=== PATIENT | female | born 1975 | race Caucasian/White ===

== ENCOUNTER 2020-10-30 16:13 | Emergency (ER) | payer MEDICAID ==
[~2020-10-30] VITALS: Ht 165.1 cm; Wt 97.0 kg
[~2020-10-30 16:13] MED LIST: CYCL-1 PO; DIAZ5TAB4 PO; OXYC-145 PO
[2020-10-30 16:45] LABS: BASOPHILS % (AUTO) 0.4 % (0-1); EOSINOPHILS # (AUTO) 0.1 X10'3 (0-0.9); EOSINOPHILS % (AUTO) 1.3 % (0-6); HEMATOCRIT 41.8 % (35.0-45.0); HEMOGLOBIN 13.8 g/dl (12.0-16.0); LYMPHOCYTES # (AUTO) 2.3 X10'3 (1.1-4.8); MEAN CORPUSCULAR HEMOGLOBIN 29.4 PG (27.0-31.0); MEAN CORPUSCULAR HGB CONC 33.1 g/dL (33.0-36.5); MEAN CORPUSCULAR VOLUME 88.7 FL (78-98); MEAN PLATELET VOLUME 9.1 FL (7.4-10.4); MONOCYTES # (AUTO) 0.4 X10'3 (0-0.9); MONOCYTES % (AUTO) 5.7 % (2-12); NEUTROPHILS # (AUTO) 4.9 X10'3 (1.8-7.7); NEUTROPHILS % (AUTO) 62.6 % (42-75); PLATELET COUNT 195 X10'3 (140-440); RED BLOOD COUNT 4.71 X10'6 (4.20-5.60); RED CELL DISTRIBUTION WIDTH 14.4 % (11.5-14.5); WHITE BLOOD COUNT 7.8 X10'3 (4.5-11.0)
[2020-10-30 16:57] LABS: ALANINE AMINOTRANSFERASE 23 U/L (12-78); ALBUMIN 3.7 G/DL (3.4-5.0); ALBUMIN/GLOBULIN RATIO 0.9 (1.1-1.5); ALKALINE PHOSPHATASE 84 IU/L (46-116); ANION GAP 6 (8-16); ASPARTATE AMINO TRANSFERASE 13 U/L (10-37); BILIRUBIN,TOTAL 0.3 MG/DL (0.1-1.0); BLOOD UREA NITROGEN 18 MG/DL (7-18); BUN/CREATININE RATIO 19.4 (6.6-38.0); CALCIUM 9.5 MG/DL (8.5-10.1); CHLORIDE 105 MMOL/L (99-107); CREATININE 0.93 MG/DL (0.40-0.90); GLUCOSE 93 MG/DL (70-104); POTASSIUM 4.5 MMOL/L (3.5-5.1); SODIUM 141 MMOL/L (135-145); TOTAL CARBON DIOXIDE 30.3 MMOL/L (24-32); TOTAL PROTEIN 7.8 G/DL (6.4-8.2); eGFR 65 ML/MIN
--- NOTE | 2020-10-30 19:32 | NUR ---
registration called an said pt back in lobby
[2020-10-30] MEDS ORDERED: morphine 4 MG/ML inj SYRINge IV ONE ×2 (20:40→22:00)
[2020-10-30] MEDS ORDERED: ondansetron/PF 4mg/2ml inj IV ONE ×2 (20:40→22:00)
[2020-10-30] MEDS ORDERED: pantoprazole 40 MG vial IV ONE (20:40)
[2020-10-30] MEDS ORDERED: normal saline 1000ML IV soln IVB ONE ×2 (20:40→22:15)
[2020-10-30] MEDS ORDERED: LIDOcaine Viscous 15ml cup MM ONE (20:40)
[2020-10-30] MEDS ORDERED: mag hydrox/Alum hydrox/simeth 30ml oral suspension PO ONE (20:40)
[2020-10-30 21:02] LABS: CLARITY,URINE SLIGHTLY CLOUDY (Clear); COLOR,URINE YELLOW (Yellow); GLUCOSE, URINE NEGATIVE (Neg); KETONES,URINE NEGATIVE (Neg); LEUKOCYTE ESTERASE ,URINE TRACE (Neg); NITRITES, URINE NEGATIVE (Neg); OCCULT BLOOD,URINE TRACE-INTACT (Neg); PH,URINE 6.5 (4.8-8.0); PROTEIN,URINE NEGATIVE (Neg); UROBILINOGEN,URINE 0.2 E.U/dL (0.2-1.0)
[2020-10-30 21:28] LABS: UA COLLECTION TYPE CLN CATCH MIDSTREAM
[2020-10-30 21:29] LABS: BACTERIA,URINE 1+ /HPF (Neg); MUCUS STRANDS MANY /LPF (Neg); RBC,URINE 0-2 /HPF (0-2); SQUAMOUS EPITHELIAL CELL,UR MANY /LPF (FEW)
[2020-10-30 21:42] LABS: URINE HCG NEGATIVE (NEG)
[2020-10-30] MEDS ORDERED: dextrose 5% water 500ml 500 ML IV ONE (22:00)
[2020-10-30 23:04] VITALS: BP 110/89
== END 2020-10-30 23:00 | disposition home or self-care (01) ==
LOC: ER 16:14
DX: C16.9 Malignant neoplasm of stomach, unspecified (principal); R11.2 Nausea with vomiting, unspecified; R19.7 Diarrhea, unspecified; R10.13 Epigastric pain; E78.00 Pure hypercholesterolemia, unspecified; J45.909 Unspecified asthma, uncomplicated; K21.9 Gastro-esophageal reflux disease without esophagitis; F41.9 Anxiety disorder, unspecified; F31.9 Bipolar disorder, unspecified; F12.90 Cannabis use, unspecified, uncomplicated; Z86.69 Personal history of other diseases of the nervous system and sense organs; Z85.9 Personal history of malignant neoplasm, unspecified; Z90.89 Acquired absence of other organs; Z90.710 Acquired absence of both cervix and uterus; Z88.8 Allergy status to other drugs, medicaments and biological substances; Z91.040 Latex allergy status; Z91.013 Allergy to seafood; Z79.899 Other long term (current) drug therapy
CPT/HCPCS: 36415; 80053; 81001; 81025; 85025; 96361; 96374; 96375; 96376; 99284; C9113; J2270; J2405; J7030

== ENCOUNTER 2020-11-06 13:30 | Inpatient (IN) | payer MEDICAID ==
[~2020-11-06] VITALS: Ht 165.1 cm; Wt 95.5 kg
[2020-11-06 14:45] LABS: URINE HCG NEGATIVE (NEG)
[2020-11-06 14:47] LABS: CLARITY,URINE CLEAR (Clear); COLOR,URINE YELLOW (Yellow); GLUCOSE, URINE NEGATIVE (Neg); KETONES,URINE NEGATIVE (Neg); LEUKOCYTE ESTERASE ,URINE NEGATIVE (Neg); NITRITES, URINE NEGATIVE (Neg); OCCULT BLOOD,URINE TRACE-INTACT (Neg); PROTEIN,URINE NEGATIVE (Neg); UROBILINOGEN,URINE 0.2 E.U/dL (0.2-1.0)
[2020-11-06 14:51] LABS: BASOPHILS % (AUTO) 0.7 % (0-1); EOSINOPHILS # (AUTO) 0.1 X10'3 (0-0.9); EOSINOPHILS % (AUTO) 1.6 % (0-6); HEMATOCRIT 44.5 % (35.0-45.0); HEMOGLOBIN 14.7 g/dl (12.0-16.0); LYMPHOCYTES # (AUTO) 2.5 X10'3 (1.1-4.8); LYMPHOCYTES % (AUTO) 40.8 % (21-51); MEAN CORPUSCULAR HEMOGLOBIN 29.4 PG (27.0-31.0); MEAN CORPUSCULAR HGB CONC 32.9 g/dL (33.0-36.5); MEAN CORPUSCULAR VOLUME 89.2 FL (78-98); MEAN PLATELET VOLUME 9.7 FL (7.4-10.4); MONOCYTES # (AUTO) 0.4 X10'3 (0-0.9); NEUTROPHILS # (AUTO) 3.1 X10'3 (1.8-7.7); NEUTROPHILS % (AUTO) 50.9 % (42-75); PLATELET COUNT 211 X10'3 (140-440); RED CELL DISTRIBUTION WIDTH 14.5 % (11.5-14.5)
[2020-11-06 14:56] LABS: UA COLLECTION TYPE CLN CATCH MIDSTREAM
[2020-11-06 15:14] LABS: ALANINE AMINOTRANSFERASE 39 U/L (12-78); ALBUMIN 3.8 G/DL (3.4-5.0); ALBUMIN/GLOBULIN RATIO 0.9 (1.1-1.5); ALKALINE PHOSPHATASE 88 IU/L (46-116); ANION GAP 10 (8-16); ASPARTATE AMINO TRANSFERASE 21 U/L (10-37); BILIRUBIN,TOTAL 0.2 MG/DL (0.1-1.0); BLOOD UREA NITROGEN 10 MG/DL (7-18); CALCIUM 9.5 MG/DL (8.5-10.1); CHLORIDE 105 MMOL/L (99-107); CREATININE 0.91 MG/DL (0.40-0.90); GLUCOSE 75 MG/DL (70-104); LIPASE 132 U/L (73-393); POTASSIUM 3.8 MMOL/L (3.5-5.1); SODIUM 143 MMOL/L (135-145); TOTAL CARBON DIOXIDE 28.4 MMOL/L (24-32); TOTAL PROTEIN 8.1 G/DL (6.4-8.2); eGFR 66 ML/MIN
[2020-11-06 15:42] LABS: WBC,URINE 0-4 /HPF (0-4)
[2020-11-06 15:43] LABS: BACTERIA,URINE NONE SEEN /HPF (Neg); RBC,URINE 0-2 /HPF (0-2); SQUAMOUS EPITHELIAL CELL,UR FEW /LPF (FEW)
[2020-11-06] MEDS ORDERED: morphine 4 MG/ML inj SYRINge IV ONE ×2 (16:35→20:55)
[2020-11-06] MEDS ORDERED: proCHLORperazine 10 MG/2 ml inj IV ONE (16:35)
[2020-11-06] MEDS ORDERED: ONDA4TAB6 PO (17:14)
--- NOTE | 2020-11-06 20:48 | NUR ---
pt very upset that "nothing is being done". pt was given a po challenge, states it made her feel worse. Provider Rober was notified and will speak with pt
[2020-11-06] MEDS ORDERED: ondansetron/PF 4mg/2ml inj IV ONE (20:55)
[2020-11-06] MEDS ORDERED: ARIP5TAB14 PO (22:26)
[2020-11-06] MEDS ORDERED: PRAZ5CAP PO (22:26)
[2020-11-06] MEDS ORDERED: FAMO-49 PO (22:26)
[2020-11-06] MEDS ORDERED: PANT-47 PO (22:26)
[2020-11-06] MEDS ORDERED: GABA-530 PO (22:26)
[2020-11-06] MEDS ORDERED: CHOL20004 PO (22:26)
[2020-11-06] MEDS ORDERED: MELO-100 PO (22:26)
[2020-11-06] MEDS ORDERED: magnesium 4gm in 100ml NS 100 ML IV PRN (22:40)
[2020-11-06] MEDS ORDERED: acetaminophen 325mg tablet PO PRN (22:40)
[2020-11-06] MEDS ORDERED: magnesium 2GM in 50ml NS 50 ML IV PRN (22:40)
[2020-11-06] MEDS ORDERED: potassium Cl 40MEQ/1/2NS 520ml 520 ML IV PRN ×2 (22:40)
[2020-11-06] MEDS ORDERED: potassium Cl 20 mEq SR tablet PO PRN ×2 (22:40)
[2020-11-06] MEDS ORDERED: magnesium Cl slow-release 64mg tablet PO PRN (22:40)
--- NOTE | 2020-11-07 00:14 | NUR ---
ATTEMPTED TO CALL REPORT TO CLIENT MANAGER LARGE [employer]. NURSE IS WITH ANOTHER PT AND WILL CALL BACK FOR REPORT
[2020-11-07 01:00] VITALS: BP 103/67
--- NOTE | 2020-11-07 01:00 | NUR ---
PATIENT ADMITTED TO ROOM 355B FROM ER FOR N/V AND ABDOMINAL PAIN. PLACED COMFORTABLE IN BED. VITAL SIGNS TAKEN AND RECORDED.
[2020-11-07 01:23] LABS: BASOPHILS % (AUTO) 0.5 % (0-1); EOSINOPHILS # (AUTO) 0.1 X10'3 (0-0.9); EOSINOPHILS % (AUTO) 1.7 % (0-6); HEMATOCRIT 39.7 % (35.0-45.0); HEMOGLOBIN 13.2 g/dl (12.0-16.0); LYMPHOCYTES # (AUTO) 3.1 X10'3 (1.1-4.8); LYMPHOCYTES % (AUTO) 45.1 % (21-51); MEAN CORPUSCULAR HEMOGLOBIN 29.7 PG (27.0-31.0); MEAN CORPUSCULAR HGB CONC 33.3 g/dL (33.0-36.5); MEAN CORPUSCULAR VOLUME 89.2 FL (78-98); MEAN PLATELET VOLUME 9.5 FL (7.4-10.4); MONOCYTES # (AUTO) 0.5 X10'3 (0-0.9); MONOCYTES % (AUTO) 7.4 % (2-12); NEUTROPHILS # (AUTO) 3.1 X10'3 (1.8-7.7); NEUTROPHILS % (AUTO) 45.3 % (42-75); PLATELET COUNT 190 X10'3 (140-440); RED BLOOD COUNT 4.45 X10'6 (4.20-5.60); RED CELL DISTRIBUTION WIDTH 14.4 % (11.5-14.5); WHITE BLOOD COUNT 6.8 X10'3 (4.5-11.0)
[2020-11-07 01:27] LABS: ALBUMIN 3.3 G/DL (3.4-5.0); ANION GAP 9 (8-16); BLOOD UREA NITROGEN 10 MG/DL (7-18); CALCIUM 8.9 MG/DL (8.5-10.1); CHLORIDE 106 MMOL/L (99-107); CREATININE 0.91 MG/DL (0.40-0.90); GLUCOSE 88 MG/DL (70-104); POTASSIUM 3.5 MMOL/L (3.5-5.1); SODIUM 145 MMOL/L (135-145); TOTAL CARBON DIOXIDE 29.7 MMOL/L (24-32); eGFR 66 ML/MIN
[2020-11-07] MEDS: normal saline 1000ml 1,000 ML IV SCH ×4 (01:28→20:29)
[2020-11-07] MEDS: morphine 2 MG/ML inj. syringe IV PRN ×5 (01:54→21:34)
--- NOTE | 2020-11-07 06:54 | NUR ---
Problems reprioritized. Patient report given, questions answered & plan of care reviewed with ANTOINETTE MONTGOMERY.
[2020-11-07] MEDS: gabapentin 100mg capsule PO SCH ×3 (07:23→20:25)
[2020-11-07] MEDS: pantoprazole 40 MG vial IV SCH (07:23)
[2020-11-07] MEDS: K and/or MAG REPLACEMENT MC SCH ×2 (07:29→20:00)
[2020-11-07 07:35] VITALS: BP 95/63
[2020-11-07 11:00] VITALS: BP 99/66
--- NOTE | 2020-11-07 14:22 | NUR ---
Malnutrition consult: Pt seen at bedside reports her weight fluctuates with UBW of 160-170 lbs though currently weighs 210 lbs. Pt reports wt gain possibly r/t bloating and swelling. Per documented wt hx in EMR patient's weight usually in the 200s. Pt with gastric CA and reports PO intake fluctuates; pt currently NPO though endorses a good appetite. Pt with no visible fat or muscle wasting and no documented decrease in muscle strength or edema. Pt currently lacks a minimum of two criteria for malnutrition, though at high risk given gastric CA. Pt pending surgery then chemo tx per pt. Pt provided with ONS coupons and RD contact information. Pt reports food allergy to fish and coconut, EMR updated. Pt denies any difficulty chewing/swallowing. Will continue to follow. Addendum: 11/07/20 at [address] Amended: Links added.
--- NOTE | 2020-11-07 18:19 | NUR ---
Problems reprioritized. Patient report given, questions answered & plan of care reviewed with Maggi RN's.
--- NOTE | 2020-11-07 19:06 | NUR ---
Patient in room [facility]. I have received report from ULISES Newman and had the opportunity to ask questions and assume patient care.
--- NOTE | 2020-11-07 19:11 | NUR ---
Patient in room [facility]. I have received report from Mimi MONTGOMERY and had the opportunity to ask questions and assume patient care.
[2020-11-07 20:00] VITALS: BP 111/71
[2020-11-07] MEDS: aripiprazole 5mg tablet PO SCH (20:26)
[2020-11-07] MEDS: prazosin 5mg capsule PO SCH (20:26)
[2020-11-07 20:30] VITALS: BP 114/76
[2020-11-08] VITALS: BP 100/62
[2020-11-08] MEDS: morphine 2 MG/ML inj. syringe IV PRN ×5 (04:23→21:36)
--- NOTE | 2020-11-08 06:28 | NUR ---
Problems reprioritized. Patient report given, questions answered & plan of care reviewed with Mimi MONTGOMERY.
--- NOTE | 2020-11-08 06:32 | NUR ---
Problems reprioritized. Patient report given, questions answered & plan of care reviewed with ULISES Newman.
[2020-11-08 07:33] LABS: BASOPHILS % (AUTO) 0.4 % (0-1); EOSINOPHILS # (AUTO) 0.1 X10'3 (0-0.9); EOSINOPHILS % (AUTO) 1.3 % (0-6); HEMATOCRIT 37.3 % (35.0-45.0); HEMOGLOBIN 12.5 g/dl (12.0-16.0); LYMPHOCYTES # (AUTO) 2.3 X10'3 (1.1-4.8); LYMPHOCYTES % (AUTO) 41.5 % (21-51); MEAN CORPUSCULAR HEMOGLOBIN 29.4 PG (27.0-31.0); MEAN CORPUSCULAR HGB CONC 33.4 g/dL (33.0-36.5); MEAN CORPUSCULAR VOLUME 88.1 FL (78-98); MEAN PLATELET VOLUME 9.6 FL (7.4-10.4); MONOCYTES # (AUTO) 0.4 X10'3 (0-0.9); MONOCYTES % (AUTO) 7.2 % (2-12); NEUTROPHILS # (AUTO) 2.7 X10'3 (1.8-7.7); NEUTROPHILS % (AUTO) 49.6 % (42-75); PLATELET COUNT 171 X10'3 (140-440); RED BLOOD COUNT 4.23 X10'6 (4.20-5.60); RED CELL DISTRIBUTION WIDTH 14.1 % (11.5-14.5); WHITE BLOOD COUNT 5.5 X10'3 (4.5-11.0)
[2020-11-08 07:35] VITALS: BP 98/73
[2020-11-08 07:49] LABS: ALBUMIN 2.9 G/DL (3.4-5.0); ANION GAP 8 (8-16); BLOOD UREA NITROGEN 10 MG/DL (7-18); BUN/CREATININE RATIO 12.5 (6.6-38.0); CALCIUM 8.6 MG/DL (8.5-10.1); CHLORIDE 108 MMOL/L (99-107); GLUCOSE 75 MG/DL (70-104); MAGNESIUM 1.8 MG/DL (1.5-2.4); POTASSIUM 3.6 MMOL/L (3.5-5.1); SODIUM 142 MMOL/L (135-145); TOTAL CARBON DIOXIDE 26.4 MMOL/L (24-32); eGFR 77 ML/MIN
[2020-11-08] MEDS: K and/or MAG REPLACEMENT MC SCH ×2 (08:00→20:00)
[2020-11-08] MEDS: ondansetron/PF 4mg/2ml inj IV PRN ×2 (08:55→21:35)
[2020-11-08] MEDS: pantoprazole 40 MG vial IV SCH (09:04)
[2020-11-08] MEDS: normal saline 1000ml 1,000 ML IV SCH ×2 (09:06→18:00)
[2020-11-08] MEDS: gabapentin 100mg capsule PO SCH ×3 (09:46→21:30)
[2020-11-08 12:58] VITALS: BP 113/75
[2020-11-08 18:00] VITALS: BP 103/71
--- NOTE | 2020-11-08 18:30 | NUR ---
Patient in room [facility]. I have received report from ULISES Le and had the opportunity to ask questions and assume patient care.
--- NOTE | 2020-11-08 18:37 | NUR ---
Problems reprioritized. Patient report given, questions answered & plan of care reviewed with Kate Segovia RNs.
[2020-11-08] MEDS: aripiprazole 5mg tablet PO SCH (21:29)
[2020-11-08] MEDS: prazosin 5mg capsule PO SCH (21:30)
[2020-11-09] VITALS: BP 124/73
[2020-11-09] MEDS: morphine 2 MG/ML inj. syringe IV PRN ×2 (04:49→09:13)
[2020-11-09 05:42] LABS: BASOPHILS % (AUTO) 0.6 % (0-1); EOSINOPHILS # (AUTO) 0.1 X10'3 (0-0.9); EOSINOPHILS % (AUTO) 1.6 % (0-6); HEMOGLOBIN 12.4 g/dl (12.0-16.0); LYMPHOCYTES # (AUTO) 2.2 X10'3 (1.1-4.8); LYMPHOCYTES % (AUTO) 39.7 % (21-51); MEAN CORPUSCULAR HEMOGLOBIN 29.5 PG (27.0-31.0); MEAN CORPUSCULAR HGB CONC 33.6 g/dL (33.0-36.5); MEAN CORPUSCULAR VOLUME 87.8 FL (78-98); MEAN PLATELET VOLUME 9.7 FL (7.4-10.4); MONOCYTES # (AUTO) 0.4 X10'3 (0-0.9); MONOCYTES % (AUTO) 7.2 % (2-12); NEUTROPHILS # (AUTO) 2.8 X10'3 (1.8-7.7); NEUTROPHILS % (AUTO) 50.9 % (42-75); PLATELET COUNT 166 X10'3 (140-440); RED BLOOD COUNT 4.21 X10'6 (4.20-5.60); RED CELL DISTRIBUTION WIDTH 14.1 % (11.5-14.5); WHITE BLOOD COUNT 5.4 X10'3 (4.5-11.0)
[2020-11-09 06:00] LABS: ALBUMIN 2.9 G/DL (3.4-5.0); ANION GAP 7 (8-16); BLOOD UREA NITROGEN 8 MG/DL (7-18); BUN/CREATININE RATIO 9.2 (6.6-38.0); CALCIUM 8.2 MG/DL (8.5-10.1); CHLORIDE 109 MMOL/L (99-107); CREATININE 0.87 MG/DL (0.40-0.90); GLUCOSE 102 MG/DL (70-104); MAGNESIUM 1.8 MG/DL (1.5-2.4); POTASSIUM 3.3 MMOL/L (3.5-5.1); SODIUM 143 MMOL/L (135-145); TOTAL CARBON DIOXIDE 26.7 MMOL/L (24-32); eGFR 70 ML/MIN
--- NOTE | 2020-11-09 06:35 | NUR ---
Problems reprioritized. Patient report given, questions answered & plan of care reviewed with ULISES Momin.
[2020-11-09] MEDS ORDERED: pantoprazole 40mg Tablet.DR PO SCH (07:30)
[2020-11-09] MEDS: gabapentin 100mg capsule PO SCH ×2 (07:54→12:39)
[2020-11-09 08:00] VITALS: BP 98/58
[2020-11-09] MEDS: K and/or MAG REPLACEMENT MC SCH (08:00)
--- NOTE | 2020-11-09 09:47 | NUR ---
Patient K replacement needed before discharge. Will follow protocol.
[2020-11-09] MEDS: normal saline 1000ml 1,000 ML IV SCH (10:40)
== END 2020-11-09 17:35 | disposition home or self-care (01) | DRG 249 ==
LOC: ER 13:31 → ED HOLD 22:36 → SUR 3N 11-07 00:58
PROVIDERS: ADMIT Internal Medicine; ATTEND Family Medicine
DX: R11.2 Nausea with vomiting, unspecified (principal); C16.9 Malignant neoplasm of stomach, unspecified; E78.00 Pure hypercholesterolemia, unspecified; F12.90 Cannabis use, unspecified, uncomplicated; K21.9 Gastro-esophageal reflux disease without esophagitis; F31.9 Bipolar disorder, unspecified; F41.9 Anxiety disorder, unspecified; J45.909 Unspecified asthma, uncomplicated; Z90.710 Acquired absence of both cervix and uterus; Z88.6 Allergy status to analgesic agent; Z91.040 Latex allergy status; Z91.013 Allergy to seafood; Z79.899 Other long term (current) drug therapy
CPT/HCPCS: 36415; 80048; 80053; 81001; 81025; 83690; 83735; 84132; 85025; 87081; 96374; 96375; 99285; C9113; G0378; J0780; J2270; J2405; J3480; J7030

== ENCOUNTER 2022-10-08 16:41 | Emergency (ER) | payer MEDICAID ==
[~2022-10-08] VITALS: Ht 167.6 cm; Wt 106.8 kg
[~2022-10-08 16:41] MED LIST changes: +ARIP5TAB14 PO; +CHOL20004 PO; -CYCL-1 PO; -DIAZ5TAB4 PO; +FAMO-49 PO; +GABA-530 PO; +MELO-100 PO; -OXYC-145 PO; +PANT-47 PO; +PRAZ5CAP PO
[2022-10-08 16:45] VITALS: BP 140/97
[2022-10-08] MEDS ORDERED: NAPR-56 PO (17:44)
[2022-10-08] MEDS ORDERED: PENI250T2 PO (17:44)
[2022-10-08] MEDS ORDERED: TRAM50TA2 PO (17:44)
== END 2022-10-08 18:01 | disposition home or self-care (01) ==
LOC: ER 16:41
DX: K04.7 Periapical abscess without sinus (principal); E78.00 Pure hypercholesterolemia, unspecified; K21.9 Gastro-esophageal reflux disease without esophagitis; F31.9 Bipolar disorder, unspecified; F12.90 Cannabis use, unspecified, uncomplicated; Z88.8 Allergy status to other drugs, medicaments and biological substances; Z91.013 Allergy to seafood; Z91.040 Latex allergy status; Z90.710 Acquired absence of both cervix and uterus
CPT/HCPCS: 99283

== ENCOUNTER 2024-11-20 20:00 | Emergency (ER) | payer MEDICAID ==
[~2024-11-20] VITALS: Ht 167.6 cm; Wt 109.1 kg
[~2024-11-20 20:00] MED LIST changes: +ARIP5TAB12 PO; -ARIP5TAB14 PO
[2024-11-20 20:09] VITALS: TEMP 98.8
--- NOTE | 2024-11-20 22:20 | Physician Documentation ---
History of Present Illness ~ Chief Complaint: Back Pain Stated Complaint: BACK PAIN Time Seen by MD: 22:03 Primary Medical Doctor: [facility] This is a 49-year-old female with history of chronic low back pain presenting for increased low back pain after slipping and falling while getting into her car striking the door jam of her car with her back, patient reports pain across the entire low back without radiation in the legs though patient reports tingling in her lateral thighs bilaterally. Patient reports no recent fever, no new weakness or numbness in her legs, no saddle paresthesia, no loss of bowel or bladder control. Patient reports no history of cancer, IV drug use, or tuberculosis. Patient reports history of chronic back pain due to �bulging disc�. Patient reports no other acute symptoms or concerns including no other injuries. Medication Reconciliation Allergies: Coded Allergies: aspirin (Unverified Allergy, Unknown, 06/13/24) HAS TOLERATED KETOROLAC AND NAPROXEN coconut (Unverified Allergy, Unknown, 06/13/24) Itchy throat fish derived (Unverified Allergy, Unknown, 06/13/24) latex (Unverified Allergy, Unknown, 06/13/24) Scheduled Aripiprazole* (Abilify*), 15 MG PO HS, (Reported) Cholecalciferol (Vitamin D), 1 TAB PO DAILY, (Reported) Famotidine (Famotidine), 1 TAB PO Q12H, (Reported) Gabapentin (Gabapentin), 2 CAP PO TID, (Reported) Ibuprofen (Ibuprofen), 1 TAB PO Q8H Lidocaine (Lidoderm), 1 PATCH TOP DAILY Meloxicam* (Meloxicam*), 1 TAB PO DAILY, (Reported) Pantoprazole Sodium (PROTONIX tablet), 1 TAB PO DAILY, (Reported) Prazosin Hcl (Minipress), 3 CAP PO HS, (Reported) Scheduled PRN Cyclobenzaprine* (Cyclobenzaprine*), 1 TAB PO TID PRN for muscle spasms Past Medical History Past Medical History: Headache, Seizures, High Cholesterol, Asthma, GERD, *CANCER*, Anxiety, Bipolar, Depression Past Surgical History: abdominal surgery, appendectomy, hysterectomy, tonsillectomy Alcohol Use: None Drug Use: marijuana Lives In: Home Review of Systems ROS Lumbar back pain as stated above in the HPI, otherwise all systems are reviewed and negative. Physical Exam Physical Exam Vital Signs: Temperature: 98.8, Source: Oral, Heart Rate: 71, Respiratory Rate: 16, BP: 106/81, Pulse Oximetry: 99, Weight: 109.090 Oxygen Flow Rate: 0 Physical Exam VITALS: Reviewed and as above. GENERAL: Alert, nontoxic appearing, no apparent distress. RESPIRATORY: No increased work of breathing, no respiratory distress, speaking in full clear sentences BACK: Tenderness to entire lumbar back without central spinal tenderness, no step-offs, no crepitus, no ecchymosis, no erythema Progress Results/Orders Results/Orders Orders - EMIR BERRIOS Lumbar Spine Limited (11/20/24 22:30) Completed Orders - EMIR BERRIOS Lumbar Spine Limited (11/20/24 22:30) Ketorolac Trometh 15mg/Ml Vial (Toradol (11/20/24 22:20) Lidocaine 5% Patch (Lidoderm 5% Patch) (11/20/24 22:20) Cyclobenzaprine Tablet (Flexeril Tablet) (11/21/24 00:35) Medications Received in ER Medications (Trade) Dose Ordered Sig/Brady Route PRN Reason Start Time Stop Time Status Last Admin Dose Admin (Toradol injection) 15 mg ONCE ONCE IM 11/20/24 22:20 11/20/24 22:31 DC 11/20/24 22:41 15 MG (Lidoderm 5% Patch) 1 patch ONCE ONCE TP 11/20/24 22:20 11/20/24 22:22 DC 11/20/24 22:36 1 PATCH (Flexeril tablet) 10 mg ONCE ONCE PO 11/21/24 00:35 11/21/24 00:37 DC 11/21/24 00:45 10 MG Vital Signs 11/20/24 11/20/24 11/20/24 11/20/24 20:09 22:41 23:35 23:38 Temp 98.8 Pulse 71 67 Resp 16 16 16 19 B/P (MAP) 106/81 120/79 (93) Pulse Ox 99 98 O2 Flow Rate 0 0 EKG/XRAY/CT/US/VASC/MRI Bone/Soft Tissue X-Ray (Spine) : Additional Comment Exam: LUMBAR SPINE LIMITED Clinical History Back Pain Post Fall Comparison None Technique: lumbar spine 3 views Without Contrast OTTONIEL DELACRUZ, [id number] Findings: The vertebral bodies demonstrate anatomic height and alignment. There is no evidence of an acute fracture or dislocation. The disc spaces demonstrate loss of disc height L4-L5. Small endplate osteophytes Impression: 1. No acute fracture or dislocation. 2. Mild degenerative changes. This report was electronically signed by Rommel Matthew MD on 11/21/2024 12:49:52 AM. Electronically Signed by:ROMMEL MATTHEW MD Date & Time: 11/21/2451 Dictated by: ROMMEL MATTHEW MD Dictation date and time: 11/21/2451 I have reviewed and agree with the radiology report. I have reviewed and interpreted the imaging as: No fracture or acute misalignment Medical Decision Making Findings This is an otherwise healthy, well appearing 49-year-old female with history of chronic back pain presenting with increased lumbar back pain after slipping in striking her back on the doorjamb of her vehicle. Imaging of the area was indicated due to the traumatic nature of the exacerbation of the pain though it was reassuring patients did not have any other high-risk features on history including IVDA, cancer, significant weight loss or history of TB, and the patien t has a normal neurologic exam without fever, severe or progressive neurologic deficits, new or worsening urinary retention, urinary/stool incontinence or decreased perineal sensation. X-ray of the lumbar spine did not demonstrate evidence of fracture or dislocation. This appears to be in acute exacerbation of chronic low back pain. I doubt spinal fracture, epidural hematoma, epidural abscess, unstable spinal pathology, emergent renal or aortic pathology, or spinal cord compression. Upon discharge, the patient�s pain was controlled, and the patient was ambulatory without a risk of falling. Return precautions were discussed including worsening pain, new/worsening weakness/numbness, difficulty urinating, or incontinence. Patient was discharged with prescription for pain medications and provided home care instructions and return to care precautions which she verbalized understanding of. Differential Dx:Considerations: Include: DJD, Fracture, Musculoskeletal pain, Pyelonephritis, Strain, Other (Cauda equina) Departure Time of Disposition: 00:58 Disposition: 01 HOME / SELF CARE / HOMELESS Impression: Primary Impression: Low back pain Qualified Codes: M54.42 - Lumbago with sciatica, left side; M54.41 - Lumbago with sciatica, right side Condition: Improved Discharge Instructions: Chronic Back Pain Additional Instructions: Please use the prescribed ibuprofen, lidocaine patches, and Flexeril for your low back pain. Please follow up with your primary care provider in the next few days. Please return to the emergency department for any new or worsening concerning symptoms including but not limited to new weakness or numbness to your legs or feet, or loss of bowel or bladder control. Do not take the ibuprofen for the next 12 hours as you received a Toradol injection tonight. Do not take the Flexeril with other muscle relaxers, other opioid medications, or alcohol. Do not drive or operate heavy machinery while taking the Flexeril. Referrals: NO PRIMARY CARE PROVIDER (PCP) Prescriptions Lidocaine (Lidoderm) 5 % Adh..patch 1 PATCH TOP DAILY for 10 Days, #10 PATCH 0 Refills may wear up to 12 hours Prov: EMIR BERRIOS 11/21/24 Cyclobenzaprine* (Cyclobenzaprine*) 10 Mg Tablet 1 TAB PO TID PRN for muscle spasms, #15 TAB Prov: EMIR BERRIOS 11/21/24 Ibuprofen (Ibuprofen) 800 Mg Tablet 1 TAB PO Q8H for pain for 10 Days, #30 TAB 0 Refills Prov: EMIR BERRIOS 11/21/24 Education Educated: Patient Educated regarding: diagnosis, treatment, prognosis, need for follow up Signature Scribe Signature: No scribe Attestation: The note accurately reflects work and decisions made by me.FLORENCIO Alcantara 11/21/24 03:03 EMIR BERRIOS November 20, 2024 22:20
[2024-11-20] MEDS: LIDOcaine 5% patch TP ONE (22:36)
[2024-11-20] MEDS: ketorolac trometh 15mg/ml vial 15 MG/ML ML IM ONE (22:41)
[2024-11-20 23:35] VITALS: BP 120/79; PULSE 67; O2SAT 98
[2024-11-20 23:38] VITALS: RESP 19
[2024-11-21] MEDS: cyclobenzaprine 10mg tablet PO ONE (00:45)
--- NOTE | 2024-11-21 00:52 | RADIOLOGY REPORT ---
Clinical History Back Pain Post Fall Comparison None Technique: lumbar spine 3 views Without Contrast OTTONIEL DELACRUZ, [id number] Findings: The vertebral bodies demonstrate anatomic height and alignment. There is no evidence of an acute fra cture or dislocation. The disc spaces demonstrate loss of disc height L4-L5. Small endplate osteophytes Impression: 1. No acute fracture or dislocation. 2. Mild degenerative changes. This report was electronically signed by Rommel Mclean MD on 11/21/2024 12:49:52 AM.
[2024-11-21] MEDS ORDERED: CYCL-1 PO (00:58)
[2024-11-21] MEDS ORDERED: LIDO700A32 TOP (00:58)
[2024-11-21] MEDS ORDERED: IBUP-1986 PO (00:58)
== END 2024-11-21 01:17 | disposition home or self-care (01) ==
LOC: ER 20:01
DX: M54.50 Low back pain, unspecified (principal); E78.00 Pure hypercholesterolemia, unspecified; F31.9 Bipolar disorder, unspecified; J45.909 Unspecified asthma, uncomplicated; F41.9 Anxiety disorder, unspecified; F12.90 Cannabis use, unspecified, uncomplicated; Z88.6 Allergy status to analgesic agent; Z88.8 Allergy status to other drugs, medicaments and biological substances; Z90.49 Acquired absence of other specified parts of digestive tract; Z90.710 Acquired absence of both cervix and uterus
CPT/HCPCS: 72100; 96372; 99283; J1885